=== PATIENT | female | born 1960 | race Caucasian/White ===

== ENCOUNTER 2019-01-16 10:43 | Emergency (ER) | payer MEDICAID ==
[~2019-01-16] VITALS: Ht 167.6 cm; Wt 54.5 kg
[~2019-01-16 10:43] MED LIST: ANORO IH; ATARAX 25MG25 MG/TAB PO; B COMPLEX1 TA2 PO; CEPHALEXIN500 M1 PO; CLORAZEPATE D3.75 M1 PO; CLORAZEPATE3.75 MG PO; CYMBALTA 60MG60 MG; DALIRESP500 MCG PO; DOXEPIN50 MG PO; ENJUVIA PO; FLEXERIL 1010 MG/TAB PO; HORMONES; LORTAB 5/500 501 TAB PO; NORCO 325 MG-51 TAB PO; PAXIL PO; PERCOCET 325 MG1 TA2 PO; PHENERGAN 25 TA25 MG PO; PREMARIN .3MG0.3 MG PO; PREMARIN 0.60.625 M1 PO; PREMARIN 0.60.625 MG PO; REMERON 15M15 MG/TA1 PO; SILENOR3 MG PO; SINEQUAN 5050 MG/CAP PO; TRANXENE 3.753.75 MG PO; [UNRECOGNIZED DRUG - OTHER]; proair INH
[2019-01-16 10:48] VITALS: BP 129/60
[2019-01-16] MEDS ORDERED: MEDROL 4MG DOSPA4 MG PO (12:11)
[2019-01-16 12:34] VITALS: PULSE 76; TEMP 97.5
== END 2019-01-16 12:38 | disposition home or self-care (01) ==
LOC: COL.ER 10:43
DX: S63.502A Unspecified sprain of left wrist, initial encounter (principal); R20.2 Paresthesia of skin; F17.210 Nicotine dependence, cigarettes, uncomplicated; F12.90 Cannabis use, unspecified, uncomplicated; Z90.710 Acquired absence of both cervix and uterus; X50.1XXA Overexertion from prolonged static or awkward postures, initial encounter